=== PATIENT | female | born 1985 | race Caucasian/White ===

== ENCOUNTER 2018-07-19 07:46 | Outpatient (CLI) | payer OTHER ==
[2018-07-19] MEDS ORDERED: Gadobenate Dimeglumine 529 MG/1 ML (20ML VIAL) ONE (09:00)
--- NOTE | 2018-07-19 11:49 | MRI ---
MR ANGIOGRAM OF [place] OF [place]: Date: 07/19/18 HISTORY: Headache. COMPARISON: None. TECHNIQUE: MR angiogram of the [place] of [place] was performed in the axial plane utilizing 3D [id number] avnda ging. Maximum intensity projection images are submitted for interpretation. FINDINGS: Symmetric flow-related signal of the intracranial internal carotid arteries. Anterior Circulation: Appropriate and essentially symmetric flow-related signal in the A1 and M1 seg ments, as well as the proximal A2 segments and MCA branches. No evidence of aneurysm. No evidence of vascular occlusion. Posterior Circulation: Limited evaluation of the left and right PICA artery origin. Both distal cerv ical and intracranial vertebral arteries have appropriate enhancement and luminal diameter. Both vert ebral arteries supply a normal appearing basilar artery with appropriate enhancement and luminal diam eter. The left and right P1 segments have symmetric enhancement and luminal diameter. With regard to the posterior circulation, no vascular occlusion. No aneurysm. IMPRESSION: Unremarkable MR angiogram of the [place] of [place]. No evidence of vascular occlusion or aneurysm. POS: [facility]
--- NOTE | 2018-07-19 11:53 | MRI ---
MRI BRAIN WITH AND WITHOUT CONTRAST: Date: 07/19/18 HISTORY: Headache. COMPARISON: None. TECHNIQUE: Brain MRI is performed with and without intravenous Gadolinium administration. Multisequential, multi planar imaging is performed. FINDINGS: No hemorrhage on the axial gradient echo sequence. No parenchymal mass, mass effect, or midline shift . Brain volume, age-appropriate. Cortical [place]-white matter differentiation preserved. Ventricles and sulci are patent and symmetric. Central arterial flow-voids are maintained. Absent restricted diffus ion. Solitary T2 hyperintense focus, periventricular in location, adjacent to the frontal horn of the left lateral ventricle. Minimal mucosal thickening of the paranasal sinuses. Adequate mastoid air ce ll aeration. Calvarium has a normal T1 marrow signal intensity. Midline brain parenchymal structures are unremarkable. No pathologic enhancement of the brain parenchyma. IMPRESSION: Unremarkable pre and postcontrast brain MRI. No evidence of abnormal enhancement or restricted diffus ion. POS: [facility]
== END 2018-07-19 07:47 | disposition home or self-care (01) ==
LOC: SCSMRI 07:46
PROVIDERS: ATTEND Neurological Surgery
DX: R51 Headache (principal)
CPT/HCPCS: 70544; 70553; A9579

== ENCOUNTER 2019-09-25 14:41 | Outpatient (CLI) | payer OTHER ==
--- NOTE | 2019-09-25 16:25 | ULT ---
ULTRASOUND LEFT BREAST LIMITED: 09/25/19 HISTORY: 34-year-old female with left breast skin retraction and mammographic mass found on baseline mammogram today. TECHNIQUE: Focused ultrasound of the left breast from the 2 o'clock to 7 o'clock positions. FINDINGS: At approximately the 6 o'clock position, at the far posterior aspect of the left breast, there is a s olid mass with low to intermediate echogenicity measuring approximately 1.7 x 0.6 x 1.1 cm. It is wid er than tall, does not produce acoustic shadowing, and has fairly well circumscribed margins, except for minimal lobulation at the anterior surface. It is very close to the chest wall. It corresponds t o the mammographic mass. No architectural distortion or spiculation. This could be a fibroadenoma or a low grade breast cancer. Ultrasound guided biopsy is recommended. Dr. Reed discussed this with the patient immediately after the ultrasound, then by telephone with Tavon Marques LVN, at Dr. Sloan Orellana's office at 4:14 p.m. on 09/25/19. IMPRESSION: 1. BI-RADS 4: Suspicious Abnormality - Biopsy Should Be Considered Usually requires biopsy. 2. Recommend ultrasound guided biopsy of the solid mass at the 6 o'clock position of the far pos terior inferior left breast. POS: [facility]
--- NOTE | 2019-09-25 16:41 | MMO ---
Bilateral MAMMO Bilat Diag DDI+ABELARDO. CLINICAL HISTORY: Patient is 34 years old and is seen for diagnostic exam. The patient has no family history of breast cancer. The patient has no personal history of cancer. VIEWS: The views performed were: bilateral craniocaudal with tomosynthesis; bilateral mediolateral oblique with tomosynthesis; and bilateral mediolateral with tomosynthesis. FILMS COMPARED: The present examination has been compared to a prior imaging study performed at [facility] on 09/25/2019. This study has been interpreted with the assistance of computer-aided detection. MAMMOGRAM FINDINGS: There are scattered fibroglandular densities. There is a mass measuring 15 millimeters seen in the posterior region of the left breast at 6 o'clock. Ultrasound confirms solid mass. In the right breast, there are no suspicious masses, calcifications or areas of architectural distortion. Dr Soto discussed finding and recommendation for biopsy immediately after ultrasound. D/W Dr. Rosa Marques GEOTHERMAL OPERATIONS MANAGER over the phone at 4:41 PM on 09/25/2019. IMPRESSION: MASS IN THE LEFT BREAST IS SUSPICIOUS. AN ULTRASOUND-GUIDED BREAST BIOPSY IS RECOMMENDED. THE RESULTS OF THIS EXAM WERE SENT TO THE PATIENT. ACR BI-RADS Category 4 - Suspicious abnormality - biopsy should be considered MAMMOGRAPHY NOTE: 1. A negative mammogram report should not delay a biopsy if a dominant of clinically suspicious mass is present. 2. Approximately 10% to 15% of breast cancers are not detected by mammography. 3. Adenosis and dense breasts may obscure an underlying neoplasm. Reported by: SU SOTO MD Electonically Signed: [id number]
== END 2019-09-25 14:42 | disposition home or self-care (01) ==
LOC: BICMAMMO 14:41
PROVIDERS: ATTEND Obstetrics & Gynecology
DX: N64.59 Other signs and symptoms in breast (principal); N63.23 Unspecified lump in the left breast, lower outer quadrant
CPT/HCPCS: 77066; G0279

== ENCOUNTER → 2019-10-04 | Day surgery (SDC) | payer OTHER ==
--- NOTE | 2019-10-04 14:06 | MMO ---
Left Breast MAMMO Unilat Diag DDI LT. CLINICAL HISTORY: Patient is 34 years old and is seen for breast biopsy. The patient has no family history of breast cancer. The patient has no personal history of cancer. VIEWS: The views performed were: left craniocaudal and left mediolateral oblique. FILMS COMPARED: The present examination has been compared to a prior imaging study performed at [facility] on 09/25/2019. This study has been interpreted with the assistance of computer-aided detection. MAMMOGRAM FINDINGS: There is a mass with associated biopsy clip seen in the left breast at 6 o'clock. IMPRESSION: BIOPSY CLIP AND MASS IN THE LEFT BREAST IS CONFIRMED UTILIZING POST PROCEDURE MAMMOGRAM. THE RESULTS OF THIS EXAM WERE SENT TO THE PATIENT. MAMMOGRAPHY NOTE: 1. A negative mammogram report should not delay a biopsy if a dominant of clinically suspicious mass is present. 2. Approximately 10% to 15% of breast cancers are not detected by mammography. 3. Adenosis and dense breasts may obscure an underlying neoplasm. Reported by: PRUDENCIO MANE MD Electonically Signed: [id number]
--- NOTE | 2019-10-04 14:36 | ULT ---
ULTRASOUND GUIDED LEFT BREAST MASS BIOPSY: ULTRASOUND GUIDED LEFT BREAST BIOPSY MARKER CLIP PLACEMENT: HISTORY: Hypoechoic mass, left breast, 6 o'clock position. Biopsy recommended. TECHNIQUE: After informed consent was obtained the patient was placed on the sonography table in the supine posi tion. The mass in the left breast 6 o'clock position was again localized. The area was marked and the n meticulously prepped and draped in the usual sterile fashion. The skin and subcutaneous tissues were infiltrated with buffered 1% Lidocaine for local anesthesia. A small skin incision was made. Utilizing concurrent real-time ultrasound guidance a total of four 14 gauge core needle biopsy specimens were obtained of the mass. A biopsy marker clip was then deployed adjacent to the mass, utilizing concurrent real-time ultrasoun d guidance. Hemostasis was achieved with direct pressure and a dry, sterile dressing was placed. The patient tolerated the procedure well and without immediate complication. Post biopsy mammogram de monstrates a biopsy marker clip adjacent to the mass, which was also noted on mammographic evaluation . IMPRESSION: 1. Technically successful ultrasound guided biopsy, left breast mass. 2. Technically successful biopsy marker clip placement adjacent to left breast mass. 3. Pathology is currently pending. POS: [facility]
== END ==
LOC: BICULT 12:25
PROVIDERS: ATTEND Obstetrics & Gynecology
PROC: 0H95XZX Drainage of Chest Skin, External Approach, Diagnostic (ICD-10-PCS; principal; 2019-10-04)
DX: D24.2 Benign neoplasm of left breast (principal)
CPT/HCPCS: 19083; 88305

== ENCOUNTER 2020-11-24 12:05 | Outpatient (CLI) | payer OTHER ==
--- NOTE | 2020-11-24 12:50 | MMO ---
Bilateral MAMMO Bilat Screen [facility]DI+ABELARDO. CLINICAL HISTORY: Patient is 35 years old and is seen for screening. The patient has no family history of breast cancer. The patient has no personal history of cancer. The patient has a history of left Ultrasound Guided Core Biopsy in 2019 - benign. VIEWS: The views performed were: bilateral craniocaudal with tomosynthesis and bilateral mediolateral oblique with tomosynthesis. FILMS COMPARED: The present examination has been compared to prior imaging studies performed at [facility] on 09/25/2019 and 10/04/2019. This study has been interpreted with the assistance of computer-aided detection. MAMMOGRAM FINDINGS: There is a stable oval mass with circumscribed margins seen in the left breast. There are no suspicious masses, suspicious calcifications, or new areas of architectural distortion. IMPRESSION: THERE IS NO MAMMOGRAPHIC EVIDENCE OF MALIGNANCY. A ROUTINE FOLLOW-UP MAMMOGRAM AT AGE 38 IS RECOMMENDED. THE RESULTS OF THIS EXAM WERE SENT TO THE PATIENT. ACR BI-RADS Category 2 - Benign finding MAMMOGRAPHY NOTE: 1. A negative mammogram report should not delay a biopsy if a dominant of clinically suspicious mass is present. 2. Approximately 10% to 15% of breast cancers are not detected by mammography. 3. Adenosis and dense breasts may obscure an underlying neoplasm. Reported by: ELY VICTORIA MD Electonically Signed: [id number]
== END 2020-11-24 12:06 | disposition home or self-care (01) ==
LOC: BICMAMMO 12:05
PROVIDERS: ATTEND Obstetrics & Gynecology
DX: Z12.31 Encounter for screening mammogram for malignant neoplasm of breast (principal); Z91.89 Other specified personal risk factors, not elsewhere classified
CPT/HCPCS: 77063; 77067